=== PATIENT | female | born 1970 | race Caucasian/White ===

== ENCOUNTER → 2019-06-28 | Outpatient (CLI) | payer OTHER ==
--- NOTE | 2019-06-28 11:12 | KCIC ---
5 views of the lumbar spine 06/28/2019 INDICATION: Acute onset bilateral low back pain. COMPARISON STUDY: None FINDINGS: No evidence of acute fracture or alignment abnormality is identified. Vertebral body heights are maintained. Disc spaces are relatively maintained. There is grade 1 anterolisthesis of L4 on L5. No radiographic evidence of spondylolysis is identified. Facet arthropathy appears be present at L4-5 L5-S1 no acute soft tissue changes are appreciated radiographically. IMPRESSION: Mild degenerative changes of the lumbar spine without evidence of acute osseous abnormality. Electronically signed by: Dipesh Parson MD (06/28/2019 11:09 AM) [id number]
== END | disposition home or self-care (01) ==
LOC: KCIC 10:02
PROVIDERS: ATTEND Family Medicine
DX: M47.816 Spondylosis without myelopathy or radiculopathy, lumbar region (principal); M43.16 Spondylolisthesis, lumbar region; M12.88 Other specific arthropathies, not elsewhere classified, other specified site
CPT/HCPCS: 72110

== ENCOUNTER → 2020-04-17 | Outpatient (CLI) | payer MEDICAID ==
--- NOTE | 2020-04-17 15:53 | KCIC ---
PA and lateral chest radiographs 04/17/2020 CLINICAL HISTORY: Cough for 5 days. Shortness of breath. PA and lateral digital radiographs of the chest were obtained. No previous studies are available for comparison. The cardiac silhouette is normal in size. The thoracic aorta is mildly tortuous. No acute pulmonary infiltrate is seen. No pleural effusion or pneumothorax is noted. Degenerative changes are seen involving the thoracic spine. IMPRESSION: No acute abnormality is seen. Electronically signed by: To Ramos MD (04/17/2020 3:51 PM) [id number]
== END ==
LOC: KCIC 15:29
PROVIDERS: ATTEND Family Medicine
DX: R05 Cough (principal); Q25.46 Tortuous aortic arch; M47.814 Spondylosis without myelopathy or radiculopathy, thoracic region
CPT/HCPCS: 71046

== ENCOUNTER → 2020-10-06 | Outpatient (CLI) | payer MEDICAID ==
[~2020-10-06] MED LIST: AMLO-187 PO; HYDR-2145 PO; IOHEXOL 300 MG/ML 100ML VIAL. IV ONE; LEVO75TA5 PO; LISI-130 PO; METO-239 PO; TOPI100T8 PO
--- NOTE | 2020-10-06 09:37 | KCIC ---
PQRS Compliance Statement: One or more of the following individualized dose reduction techniques were utilized for this examinat ion: 1. Automated exposure control 2. Adjustment of the mA and/or kV according to patient size 3. Use of iterative reconstruction technique CT NECK SOFT TISSUE WITH IV CONTRAST 10/06/2020 8:36 AM Indication: Mass. Loss at of the neck. COMPARISON: None available. TECHNIQUE: Multiple axial CT images of the neck soft tissues were obtained after the administration o f 95 cc Omnipaque 300. Coronal and sagittal reformats are provided. FINDINGS: The visualized brain parenchyma appears intact. The skull base is normal. The visualized paranasal si nuses and orbital contents are normal. The sella turcica and cavernous sinus regions appear intact. T he mastoid air cells are normal. The fossa of Rosenmuller is normal. The parotid space contents and mail distribution clerk space contents appear i ntact. The parapharyngeal spaces are normal. The submandibular and sublingual space contents appear intact. The epiglottis, aryepiglottic folds, and piriform sinuses are normal. The vallecula appears normal. The larynx and trachea are normal. The thyroid lobes appear intact. The carotid space contents are normal. There is no deep cervical chain adenopathy observed. The jugul odigastric regions appear intact. The perivertebral space contents are normal. The supraclavicular regions appear intact. The visualiz ed mediastinum is normal. The visualized lungs appear intact. Mild cervical spondylosis. No acute fra cture. Impression: No pathologically enlarged cervical lymph nodes. No suspicious neck mass. Electronically signed by: Heidy Goode MD (10/06/2020 9:34 AM) [facility]
== END ==
LOC: KCIC CT 08:33
PROVIDERS: ATTEND Family Medicine
DX: M47.812 Spondylosis without myelopathy or radiculopathy, cervical region (principal); R22.1 Localized swelling, mass and lump, neck
CPT/HCPCS: 70491; Q9967